=== PATIENT | female | born 1970 | race Caucasian/White ===

== ENCOUNTER → 2016-08-07 | Outpatient (CLI) | payer BC ==
[~2016-08-07] MED LIST: ESCI5TAB PO; MECL-105 PO
[2016-08-07 09:55] LABS: ALBUMIN 4.4 g/dL (3.4-5.0); ALKALINE PHOSPHATASE 55 U/L (38-126); ANION GAP 11.7 MEQ/L (3-15); BUN/CREATININE RATIO 19 (10-20); CALCULATED IONIZED CALCIUM 4.3 mg/dL (3.8-4.6)
[2016-08-07 10:15] LABS: BASOPHILS % (AUTO) 1 % (0-2); EOSINOPHILS # (AUTO) 0.1 10^3uL; EOSINOPHILS % (AUTO) 1 % (0-4); LYMPHOCYTES # (AUTO) 1.1 X10^3; MEAN CORPUSCULAR HEMOGLOBIN 30.2 PG (26.0-34.0); MEAN CORPUSCULAR HGB CONC 34.3 g/dL (31.0-37.0); MEAN CORPUSCULAR VOLUME 88 FL (80-100); MEAN PLATELET VOLUME 10.2 FL (6.0-9.5); MONOCYTES # (AUTO) 0.4 X10^3; MONOCYTES % (AUTO) 10 % (3-11); NEUTROPHILS # (AUTO) 2.8 X10^3; NEUTROPHILS % (AUTO) 64 % (51-67); PLATELET COUNT 197 10^3uL (150-450); WHITE BLOOD COUNT 4.32 10^3uL (4.0-11.0)
--- NOTE | 2016-08-07 13:31 | Diagnostic Imaging Report ---
INDICATION: Breast cancer. PA and lateral chest obtained at 09:38 a.m. Heart and mediastinal silhouette are normal in appearance. The lungs are clear. There is no pneumothorax or pleural fluid. There is no overt bony abnormality in the chest. IMPRESSION: Negative chest, no change from 04/11/2014. Dictated by: Dictated on workstation # [id number]
== END ==
LOC: LAB 09:18
PROVIDERS: ATTEND Family Medicine
DX: Z00.00 Encounter for general adult medical examination without abnormal findings (principal)
CPT/HCPCS: 36415; 71020; 80053; 80061; 84436; 84443; 85025